=== PATIENT | female | born 1960 | race Caucasian/White ===

== ENCOUNTER 2022-06-30 10:59 | Outpatient (CLI) | payer MEDICARE | END 2022-06-30 11:00 | disposition home or self-care (01) | LOC: CSHMAMMO 10:59 | PROVIDERS: ATTEND Family Medicine | DX: Z13.820 Encounter for screening for osteoporosis (principal); N95.9 Unspecified menopausal and perimenopausal disorder | CPT/HCPCS: 77080 ==

== ENCOUNTER 2024-10-30 09:56 | Outpatient (CLI) | payer MEDICARE | END 2024-10-30 09:57 | disposition home or self-care (01) | LOC: CSHSLEEP 09:56 | PROVIDERS: ATTEND Family Medicine | DX: G47.33 Obstructive sleep apnea (adult) (pediatric) (principal); R53.83 Other fatigue; F32.A Depression, unspecified; F41.9 Anxiety disorder, unspecified; E11.9 Type 2 diabetes mellitus without complications; E66.9 Obesity, unspecified; Z68.35 Body mass index [BMI] 35.0-35.9, adult; R06.83 Snoring; G25.89 Other specified extrapyramidal and movement disorders | CPT/HCPCS: 95811 ==

== ENCOUNTER 2024-12-15 13:20 | Outpatient (CLI) | payer MEDICARE | END 2024-12-15 13:21 | disposition home or self-care (01) | LOC: CSHCT 13:20 | PROVIDERS: ATTEND Family Medicine | DX: Z12.2 Encounter for screening for malignant neoplasm of respiratory organs (principal); F17.210 Nicotine dependence, cigarettes, uncomplicated | CPT/HCPCS: 71271 ==